=== PATIENT | male | born 1940 | race American Indian/Alaskan Native ===

== ENCOUNTER 2016-06-06 08:44 | Inpatient (IN) | payer MEDICARE ==
[2015-08-02 11:56] VITALS: BMI 29.8
[2016-06-06] MEDS ORDERED: Iohexol 240 (50 ml) ONE (09:52)
[2016-06-06] MEDS ORDERED: cefTRIAXone IV 1 gm in Dextros 50 ML IVPB ONE (09:52)
[2016-06-06] MEDS ORDERED: Propofol 10 mg/ml Inj (20 ML) ONE (10:42)
[2016-06-06] MEDS ORDERED: Lactated Ringer's 1,000 ML IV ONE ×2 (10:45→14:50)
--- NOTE | 2016-06-06 12:16 | PCM.SURG1 ---
Surgeon's Initial Post Op Note - Surgeon's Notes Surgeon: Court PERKINS Reed Man: NONE Type of Anesthesia: General LMA Pre-Operative Diagnosis: BPH Operative Findings: BPH Post-Operative Diagnosis: BPH Operation Performed: TURP Specimen/Specimens Removed: PROSTATE Estimated Blood Loss: EBL {In ML}: 100 Blood Products Given: N/A Post-Op Condition: Good Date of Surgery/Procedure: 06/06/16 Time of Surgery/Procedure: 12:15
[2016-06-06] MEDS ORDERED: HYDROmorphone 1 mg/ml ISec ONE (14:08)
[2016-06-06] MEDS ORDERED: Dextrose 5%/Lactated Ringer's 1,000 ML IV ONE (14:50)
--- NOTE | 2016-06-06 16:25 | CON ---
DATE: 06/06/2016 I was called by Dr. Livingston, urologist, to come see him. He just had a transurethral resection of th e prostate for an elevated PSA and BPH. I saw him in recovery room at [facility]. He is restin g comfortably in bed, CBI IVs running. IV fluids are running. He is alert and comfortable, no pain. I medically cleared him for the procedure. PAST MEDICAL HISTORY: He had an elevated PSA. He has BPH. He has hypertension. 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 He has reflu x, diverticulitis, gallbladder surgery, diverticulosis, colonic polyps, enlarged prostate, umbilical hernia, colon resection, mass in the right shoulder resection. He had a herniorrhaphy and an umbilic al hernia. He came from home to have this procedure done. He has an enlarged prostate, problems uri nating. REVIEW OF SYSTEMS: HEENT: No acute hearing loss or vision changes, no sore throat. NECK: No neck pain. CHEST: No chest pain or palpitations. No cough, congestion, wheezes or rhonchi. ABDOMEN: Soft, nontender, positive bowel sounds. EXTREMITIES: No edema. GENITOURINARY: He is having problems urinating, that is why he is getting the TURP. PHYSICAL EXAMINATION: VITAL SIGNS: He has a 96.5 temp, 60 pulse, 135/68 blood pressure, 17 respiratory rate, 100% O2 sat o n 4 liters nasal cannula. HEENT: Head is atraumatic, normocephalic. Extraocular muscles are intact. Throat is moist, no eryt gabriel. NECK: Supple, no JVD. HEART: Regular rate. LUNGS: Have decreased breath sounds with clear auscultation. ABDOMEN: Soft, mildly obese, nontender, positive bowel sounds. No guarding, no rebound. BACK: No CVA tenderness. NEUROLOGIC: CBI going into his bladder. EXTREMITIES: Have no edema at this time. LABORATORY DATA: Pending. I will order labs for tomorrow. MEDICATIONS: He is currently on Rocephin, Colace, Percocet, and potassium replacement. His regular medications that he takes at home are benazepril 40 mg a day; Flomax 0.4 mg a day; Norvasc 10 mg a da y; Pravachol 20 mg a day; Proscar 5 mg a day; Travatan Z eye drops, I am going to keep them on hold u ntil tomorrow. His vital signs are good. He is comfortable. We will probably restart him them ludwig rrow. Check his labs tomorrow. He is here for TURP status post procedure and recovery. He also has hypertension, BPH, high cholesterol, glaucoma. I will follow him tomorrow, will check his labs. Barney Tatum DO cc: [id number] TT: 06/06/2016 16:25:12 Confirmation # [id number] Dictation # [id number]
[2016-06-06] MEDS: Oxycodone/Acetaminophen 5/325 mg Tab PO PRN (20:11)
[2016-06-06] MEDS: Potassium Ch 20mEq in D5-1/2NS 1,000 ML IV SCH (20:26)
[2016-06-07] MEDS: Oxycodone/Acetaminophen 5/325 mg Tab PO PRN ×2 (04:10→09:58)
[2016-06-07 04:12] VITALS: RESP 18
[2016-06-07] MEDS: Potassium Ch 20mEq in D5-1/2NS 1,000 ML IV SCH (07:10)
[2016-06-07 07:43] LABS: HEMATOCRIT 39.2 % (35.0-51.0); MEAN CELL VOLUME 87.7 fL (80.0-94.0); MEAN CORPUSCULAR HEMOGLOBIN 28.6 pg (27.0-31.0); MEAN CORPUSCULAR HGB CONC 32.6 g/dL (33.0-37.0); MEAN PLATELET VOLUME 8.7 fL (7.2-11.7); RED CELL DISTRIBUTION WIDTH 14.2 % (11.5-14.5)
--- NOTE | 2016-06-07 07:53 | PN ---
DATE: 06/07/2016 I saw him resting comfortably in bed. Slept well last night. He had CBI running; it is clear. He h ad a little bit of pain. He got a Percocet. He is feeling well. He wants to go home. He has good spirits and he is hungry. PHYSICAL EXAMINATION: VITAL SIGNS: 98.8 temp, 69 pulse, 114/62 blood pressure, 18 respiratory rate, 95% O2 sat on room air . HEAD: Atraumatic, normocephalic. Throat is moist. NECK: Supple. HEART: Regular rate. LUNGS: Clear to auscultation. ABDOMEN: Soft, obese, nontender. EXTREMITIES: No edema. I will review his labs which are not back yet from this morning. MEDICATIONS: He is currently on Rocephin, Colace, Percocet and potassium. Will see what the labs say the morning. Put him back on his regular medical medications, which are b enazepril, Colace, Norvasc, and his Travatan eye drops. Will see if he can go home later today. He will follow up in the office either end of this week or beginning of next week and see the urologist. He had a TURP done with Dr. Livingston. I think he did quite well. Continue as per urology. Put him back on his meds. Make sure he eats. Check his labs. I will order lab for tomorrow just in case jessica beck stays one more night. Otherwise, I am happy with him. He has got to get out of bed to get his christ ly walks. Barney Tatum DO cc: [id number] TT: 06/07/2016 07:53:05 Confirmation # [id number] Dictation # [id number]
[2016-06-07 07:57] LABS: CHLORIDE 103 mmol/L (98-107)
[2016-06-07 07:58] LABS: POTASSIUM 3.9 mmol/L (3.6-5.2); SODIUM 138 mmol/L (132-148)
[2016-06-07 08:00] LABS: CARBON DIOXIDE 26 mmol/L (22-30); GFR AFRICAN-AMERICAN > 60
[2016-06-07 08:01] LABS: ALB/GLOB RATIO 1.1 (1.0-2.1); ALKALINE PHOSPHATASE 100 U/L (38-126); ALT/SGPT 30 U/L (21-72); AST/SGOT 25 U/L (17-59); BLOOD UREA NITROGEN 12 mg/dL (9-20); CALCIUM 8.1 mg/dl (8.6-10.4); GLUCOSE,RANDOM 107 mg/dL (75-110); TOTAL PROTEIN 6.4 g/dL (6.3-8.3)
[2016-06-07 08:02] VITALS: TEMP 98.9
[2016-06-07 08:05] LABS: WHITE BLOOD COUNT 8.7 K/uL (4.8-10.8)
[2016-06-07 11:34] VITALS: BP 120/72
[2016-06-07 12:00] VITALS: PULSE 79; O2SAT 96
--- NOTE | 2016-06-07 12:03 | PCM.URO ---
Urology Progress Note - General General: No Complaints, Tolerating Diet - Subjective Abdominal Pain: No Flank Pain: No Nausea: No Vomiting: No Hematuria: No (SLIGHT) Stone Passed: No Dsypnea: No Chest Pain: No Fever & Chills: No - Objective Lab Studies: Reviewed Lab Results Last 24 Hours: Laboratory Results - last 24 hr 06/07/16 06/07/16 07:30 07:30 WBC 8.7 D RBC 4.47 Hgb 12.8 Hct 39.2 MCV 87.7 MCH 28.6 MCHC 32.6 L RDW 14.2 Plt Count 158 MPV 8.7 Sodium 138 Potassium 3.9 Chloride 103 Carbon Dioxide 26 Anion Gap 13 BUN 12 Creatinine 1.2 Est GFR ( Amer) > 60 Est GFR (Non-Af Amer) 59 Random Glucose 107 Calcium 8.1 L Total Bilirubin 1.0 AST 25 ALT 30 Alkaline Phosphatase 100 Total Protein 6.4 Albumin 3.4 L Globulin 3.1 Albumin/Globulin Ratio 1.1 Intake & Output: Intake & Output 06/06/16 06/07/16 06/07/16 18:59 06:59 18:59 Intake Total 50 5900 Output Total 300 6100 Balance -250 -200 Intake: IV 50 700 Other 5200 Output: Urine 300 6100 Other: Voiding Method 3-way Lee with CBI Vital Signs: Vital Signs - 24 hr 06/06/16 06/06/16 06/06/16 12:12 12:30 12:45 Temperature 96.5 F L Pulse Rate 55 L 55 L 60 Respiratory 11 L 10 L 12 Rate Blood Pressure 135/71 131/63 134/69 O2 Sat by Pulse 100 100 100 Oximetry 06/06/16 06/06/16 06/06/16 13:00 13:15 13:30 Temperature Pulse Rate 63 60 55 L Respiratory 17 10 L 12 Rate Blood Pressure 138/75 135/68 131/63 O2 Sat by Pulse 100 100 100 Oximetry 06/06/16 06/06/16 06/06/16 13:45 14:00 14:30 Temperature Pulse Rate 60 63 58 L Respiratory 47 H 10 L 14 Rate Blood Pressure 134/69 138/75 135/68 O2 Sat by Pulse 100 100 100 Oximetry 06/06/16 06/06/16 06/06/16 15:00 16:00 17:00 Temperature Pulse Rate 59 L 59 L 62 Respiratory 15 15 17 Rate Blood Pressure 124/75 134/75 116/57 L O2 Sat by Pulse 100 100 100 Oximetry 06/06/16 06/06/16 06/06/16 18:00 19:00 19:15 Temperature 98.5 F 97.2 F L Pulse Rate 65 72 75 Respiratory 18 20 18 Rate Blood Pressure 129/66 129/103 H 144/75 O2 Sat by Pulse 100 100 98 Oximetry 06/06/16 06/07/16 06/07/16 23:45 04:11 07:10 Temperature 98.9 F 98.8 F 98.9 F Pulse Rate 63 69 65 Respiratory 20 18 18 Rate Blood Pressure 115/64 114/62 112/62 O2 Sat by Pulse 95 95 95 Oximetry 06/07/16 06/07/16 11:32 11:46 Temperature Pulse Rate 79 Respiratory Rate Blood Pressure 120/72 O2 Sat by Pulse 96 Oximetry - Physical Exam Abdominal Exam: Soft, Non-Tender, Non-Distended Bowel Sounds: Normal Back: No CVA Tenderness Genitalia: Without Inflammation Urine Color: Yellow, [place] Extremities: Normal: Bilateral, Calf Tenderness: Bilateral - Male Testes: Normal: Bilateral - Plan Advance Diet: Yes Pulmonary Toilet: Yes Catheter Care: Yes Ambulation - Out of Bed: Yes - Date & Time of Note Date: 06/07/16 Time: 12:02
[2016-06-07] MEDS ORDERED: Latanoprost 2.5 ml Opht Soln OU SCH (22:00)
--- NOTE | 2016-06-08 10:59 | OP ---
PROCEDURE DATE: 06/06/2016 PREOPERATIVE DIAGNOSES: Prostatic enlargement. Benign prostatic hypertrophy. Voiding dysfunction. POSTOPERATIVE DIAGNOSES: Prostatic enlargement. Benign prostatic hypertrophy. Voiding dysfunction. PROCEDURE: Transurethral resection of the prostate. OPERATING SURGEON: Dr. Idania Livingston DESCRIPTION OF PROCEDURE: The patient received perioperative antibiotics. The patient received gene ral anesthesia via LMA. The patient was placed in lithotomy position. Genitalia prepped and draped sterilely. A 26-Czech continuous flow resectoscope sheath was introduced under direct vision. The resectoscope was inserted. The urethra, prostate and bladder were inspected. FINDINGS: There was trilobar prostatic hypertrophy. There was predominant lateral lobe prostatic hy pertrophy. The prostatic urethral length was 5 cm. Prostatic urethra was occlusive. The bladder was noted to be markedly trabeculated. There was no bladder tumor. There was no bladder stone. The ureteral orifices were obscured by the middle lobe component of the prostate. The resectoscope was inserted. The obstructing prostatic tissue was resected. Resection was begun at the bladder neck on the floor. Hemostasis was achieved after each section of the resection. Thereafter, the anterior loose tissue was resected. Subsequently, the right lateral lobe and thereaf ter the left lateral lobe were resected. The floor and apical prostatic tissue were then resected. The prostatic chips were removed using the microvasive evacuator. The resectoscope was reinserted. There were no residual prostatic chips. There was no active bleedi ng. The landmark of the veru was maintained and spared throughout the resection. The resectoscope and sheath were removed. A Lee catheter was inserted. Bladder drainage was clear with mild traction applied. The patient tolerated the procedure without complication. dIania Livingston MD cc: [id number] TT: 06/08/2016 07:58:13 en
== END 2016-06-07 12:22 | disposition home or self-care (01) | DRG 714 ==
LOC: C.SDS 08:44 → EDSTATUS 11:00 → C.6T 14:08
PROVIDERS: ADMIT Urology; ATTEND Urology
PROC: 0VT08ZZ Resection of Prostate, Via Natural or Artificial Opening Endoscopic (ICD-10-PCS; principal; 2016-06-06 11:00)
DX: N40.1 Benign prostatic hyperplasia with lower urinary tract symptoms (principal); K21.9 Gastro-esophageal reflux disease without esophagitis; N39.9 Disorder of urinary system, unspecified; M19.011 Primary osteoarthritis, right shoulder; E78.00 Pure hypercholesterolemia, unspecified; M17.0 Bilateral primary osteoarthritis of knee; M19.012 Primary osteoarthritis, left shoulder; N35.9 Urethral stricture, unspecified

== ENCOUNTER 2016-07-15 13:02 | Emergency (ER) | payer MEDICARE ==
[2016-07-15 13:17] VITALS: BMI 30.5
[2016-07-15 13:20] VITALS: RESP 18; TEMP 97.3
--- NOTE | 2016-07-15 14:20 | C.PDOC ---
History Of Present Illness Patient is a 75 y/o male that presents to the ED for evaluation of urinary retention. Pt reports having prostate surgery done 3 weeks ago, and had andrews placed in 2 days ago. Pt notes difficulty urinating since his procedure. Pt reports having scheduled appointment with Dr. Livingston on 07/25/16 for cystoscopy. Pt also complains of increased lower abdominal pain. Otherwise, denies any fever, chills, n/v/d, or any other associated symptoms at this time. Time Seen by Provider: 07/15/16 14:03 Chief Complaint (Nursing): Male Genitourinary History Per: Patient History/Exam Limitations: no limitations Onset/Duration Of Symptoms: Days Current Symptoms Are (Timing): Still Present Quality Of Discomfort: "Pain" Associated Symptoms: Urinary Symptoms. denies: Fever, Chills, Nausea, Vomiting , Diarrhea, Loss Of Appetite, Back Pain, Chest Pain, Constipation Alleviating Factors: None Recent travel outside of the [place]: No Additional History Per: Patient Past Medical History Reviewed: Historical Data, Nursing Documentation, Vital Signs Vital Signs: Last Vital Signs Temp 97.3 F L 07/15/16 15:07 Pulse 80 07/15/16 15:07 Resp 18 07/15/16 15:07 BP 123/77 07/15/16 15:07 Pulse Ox 98 07/15/16 18:32 - Medical History PMH: Arthritis, Colonic Polyps, Diabetes, Diverticulitis, Gall Bladder Disease ( SX 2012), HTN, Hypercholesterolemia, Hyperlipidemia Denies: Chronic Kidney Disease, TIA Surgical History: Cholecystectomy Denies: Endoscopy - [facility] Procedures LAPAROSCOP LYSIS-PERITONEAL ADHES (04/23/12) LAPAROSCOPIC CHOLECYSTECTOMY (04/23/12) RESECTION OF PROSTATE, ENDO (06/06/16) Family History: States: No Known Family Hx - Social History Hx Tobacco Use: No Hx Alcohol Use: No Hx Substance Use: No - Immunization History Hx Tetanus Toxoid Vaccination: No Hx Influenza Vaccination: Yes Hx Pneumococcal Vaccination: No Review Of Systems Except As Marked, All Systems Reviewed And Found Negative. Constitutional: Negative for: Fever, Chills Cardiovascular: Negative for: Chest Pain, Palpitations Respiratory: Negative for: Shortness of Breath Gastrointestinal: Positive for: Abdominal Pain. Negative for: Nausea, Vomiting , Diarrhea, Constipation Genitourinary: Positive for: Other (urinary retention). Negative for: Dysuria, Hematuria Musculoskeletal: Negative for: Back Pain Physical Exam - Physical Exam Appears: Non-toxic, No Acute Distress Skin: Normal Color, Warm, Dry Head: Atraumatic, Normacephalic Cardiovascular: Rhythm Regular, No Murmur Respiratory: Normal Breath Sounds, No Rales, No Rhonchi, No Wheezing Gastrointestinal/Abdominal: Soft, Tenderness (suprapubic), No Guarding, No Rebound Back: Normal Inspection Extremity: Normal ROM Neurological/Psych: Oriented x3, Normal Speech, Normal Cognition ED Course And Treatment - Laboratory Results Result Diagrams: 07/15/16 15:06 07/15/16 15:06 O2 Sat by Pulse Oximetry: 98 (on RA) Pulse Ox Interpretation: Normal Progress Note: Andrews was easily passed by RN, pt tolerated procedure well. Spoke with Dr. Livingston who agrees to plan and discharge home with andrews. Dr. Livingston also request to send pre-op blood work, and urine for the procedure on 07/25/16. Disposition Counseled Patient/Family Regarding: Need For Followup - Disposition Referrals: Idania Livingston MD [Staff Provider] - Disposition: HOME/ ROUTINE Disposition Time: 14:18 Condition: FAIR Additional Instructions: Call Dr Livingston in AM for apt Return to the ed for any new or worsening symptoms Instructions: Urinary Retention in Men (ED), Andrews Catheter Placement and Care (ED), Urinary Leg Bag (GEN) - Clinical Impression Clinical Impression: Acute urinary retention - Scribe Statement The provider has reviewed the documentation as recorded by the Scribe Talha Madrigal All medical record entries made by the Scribe were at my direction and personally dictated by me. I have reviewed the chart and agree that the record accurately reflects my personal performance of the history, physical exam, medical decision making, and the department course for this patient. I have also personally directed, reviewed, and agree with the discharge instructions and disposition.
[2016-07-15 15:08] VITALS: BP 123/77; PULSE 80
[2016-07-15 15:10] LABS: BASO % 0.8 % (0.0-2.0); EOS # 0.1 K/uL (0.0-0.7); EOS % 1.3 % (0.0-4.0); HEMATOCRIT 42.2 % (35.0-51.0); LYMPH # 1.8 K/uL (1.0-4.3); LYMPH % 34.8 % (20.0-40.0); MEAN CELL VOLUME 88.3 fL (80.0-94.0); MEAN CORPUSCULAR HEMOGLOBIN 28.8 pg (27.0-31.0); MEAN CORPUSCULAR HGB CONC 32.6 g/dL (33.0-37.0); MEAN PLATELET VOLUME 8.5 fL (7.2-11.7); MONO # 0.4 K/uL (0.0-0.8); MONO % 7.4 % (0.0-10.0); NRBC % 0.1 % (0.0-2.0); RED CELL DISTRIBUTION WIDTH 14.1 % (11.5-14.5); WHITE BLOOD COUNT 5.1 K/uL (4.8-10.8)
[2016-07-15 15:25] LABS: CHLORIDE 107 mmol/L (98-107); POTASSIUM 3.7 mmol/L (3.6-5.2); RBC URINE 88 /hpf (0-3); SODIUM 142 mmol/L (132-148); URINE BACTERIA FEW (<OCC); URINE BILIRUBIN NEGATIVE (NEGATIVE); URINE BLOOD 2+ (NEGATIVE); URINE COLOR Yellow (YELLOW); URINE GLUCOSE (UA) NORMAL (Normal); URINE KETONE NEGATIVE (NEGATIVE); URINE LEUKOCYTE ESTERASE 2+ Leu/uL (Negative); URINE PROTEIN 2+ mg/dL (NEGATIVE); URINE UROBILINOGEN NORMAL mg/dL (0.2-1.0); WBC URINE 115 /hpf (0-5)
[2016-07-15 15:28] LABS: ALB/GLOB RATIO 1.2 (1.0-2.1); ALKALINE PHOSPHATASE 151 U/L (38-126); ALT/SGPT 23 U/L (21-72); AST/SGOT 24 U/L (17-59); BILIRUBIN,TOTAL 0.8 mg/dL (0.2-1.3); BLOOD UREA NITROGEN 14 mg/dL (9-20); CALCIUM 9.4 mg/dl (8.6-10.4); CARBON DIOXIDE 26 mmol/L (22-30); GFR AFRICAN-AMERICAN > 60; GLUCOSE,RANDOM 95 mg/dL (75-110); TOTAL PROTEIN 7.5 g/dL (6.3-8.3)
[2016-07-15 17:17] VITALS: O2SAT 98
== END 2016-07-15 15:08 | disposition home or self-care (01) ==
LOC: C.ER 13:02
DX: R33.8 Other retention of urine (principal)

== ENCOUNTER 2016-07-25 06:30 | Day surgery (SDC) | payer MEDICARE ==
[2016-07-25] MEDS ORDERED: cefTRIAXone IV 1 gm in Dextros 50 ML IVPB ONE (07:31)
[2016-07-25] MEDS ORDERED: Lidocaine 2% Jelly (Uro-Jet) ONE (07:31)
[2016-07-25] MEDS ORDERED: Lactated Ringer's 1,000 ML IV ONE ×2 (07:40)
[2016-07-25] MEDS ORDERED: Propofol 10 mg/ml Inj (20 ML) ONE (08:27)
[2016-07-25] MEDS ORDERED: Gentamicin 160 MG in Sodium Chloride 0.9% 100 ML IVPB STA (09:07)
--- NOTE | 2016-07-25 09:08 | PCM.SURG1 ---
Surgeon's Initial Post Op Note - Surgeon's Notes Surgeon: akila fairchild Kennel Manager: none Pre-Operative Diagnosis: hx of retention, hx of bph Operative Findings: prostatitis Post-Operative Diagnosis: same Operation Performed: cysto, prostatic urethral bx and fulg Specimen/Specimens Removed: prostatic urethral bx Estimated Blood Loss: EBL {In ML}: 0 Blood Products Given: N/A Post-Op Condition: Good Date of Surgery/Procedure: 07/25/16 Time of Surgery/Procedure: 09:08
--- NOTE | 2016-07-25 09:14 | OP ---
PROCEDURE DATE: 07/25/2016 PREOPERATIVE DIAGNOSES: History of urinary retention. History of benign prostatic hypertrophy. POSTOPERATIVE DIAGNOSES: History of urinary retention. History of benign prostatic hypertrophy. Pr ostatitis. PROCEDURES: Cystoscopy. Prostatic urethral biopsy and fulguration. OPERATING SURGEON: Dr. Idania Livingston DESCRIPTION OF PROCEDURE: The patient was placed in lithotomy position. The patient received periop erative antibiotics. The genitalia were prepped and draped sterilely. Procedure was performed under video endoscopic control. A 22-Kinyarwanda cystoscope sheath was introduced under direct vision. Urethra, prostate and bladder were inspected with 30-degree and 70-degree lenses. FINDINGS: There was no stricture of the anterior urethra. There was evidence of previous prostatic resection. There was residual tissue at the prostatic apex. The prostatic urethra was nonocclusive. There was no bladder neck contracture. There were some inflammatory irregular prostatic tissue at the left lateral lobe and at the right lateral wall toward the bladder neck. These areas were remove d with cold cup biopsy forceps. Fulguration was performed with ball electrode and electrocautery. The bladder was inspected. There was no bladder tumor. There was no bladder stone. There was mild inflammation of bladder mucosa. The ureteral orifices were intact. The bladder was reinspected with a 30-degree lens and confirmed the above findings. The cystoscope and sheath were removed. Lee catheter was inserted. Bladder drainage was clear. Rectal examination was performed. The prostate was supple and smooth, without fixation, induration, or nodularity. Prostate was approximately 25 grams in size. The patient was returned to the supine position. The patient tolerated the procedure without complic ation. Idania Livingston MD cc: [id number] TT: 07/25/2016 09:13:58 en
[2016-07-25 11:02] VITALS: BP 123/60; PULSE 80; RESP 18; TEMP 97.4; O2SAT 100
== END 2016-07-25 11:16 | disposition home or self-care (01) ==
LOC: C.SDS 06:30
PROVIDERS: ATTEND Urology
DX: N40.1 Benign prostatic hyperplasia with lower urinary tract symptoms (principal); R31.1 Benign essential microscopic hematuria; R33.8 Other retention of urine
CPT/HCPCS: 52224; 87086; 88305; 88342; C1769; J0696; J7120